=== PATIENT | female | born 1955 | race Caucasian/White ===

== ENCOUNTER 2022-09-17 11:00 | Outpatient (CLI) | payer MEDICARE, BC, SELFPAY ==
[2022-09-24 11:08] LABS: HPV APTIMA, High Risk Negative (Negative)
== END 2022-09-17 23:59 | disposition home or self-care (01) ==
LOC: LABSPEC 11:08
PROVIDERS: PCP Internal Medicine; Visit Provider Nurse Practitioner Women's Health
DX: Z12.4 Encounter for screening for malignant neoplasm of cervix (principal)
CPT/HCPCS: 87086; 87624; 88175; G0145

== ENCOUNTER → 2022-10-17 | Outpatient (CLI) | payer MEDICARE, BC, SELFPAY ==
--- NOTE | 2022-10-17 09:29 | BI_ITS ---
MAMMOGRAPHY - BILATERAL SCREENING REASON FOR EXAM: Female, 67 years old. Routine annual screening examination. PERTINENT HISTORY: Non-contributory. TECHNIQUE: Digital bilateral breast tad (3D mammographic acquisition) in the CC and MLO projections. 2-D mediolateral oblique (MLO) and craniocaudad (CC) views of both breasts were obtained. CAD: Full Field Digital Mammography with Computer Added Detection was performed. COMPARISON: No comparison mammograms available at this time. If any prior films become available, an addendum to this report can be generated. FINDINGS: Breast Composition: There are scattered areas of fibroglandular density. There are no dominant masses or suspicious calcifications. There is a 4.4 mm x 4 mm well-defined nodule in the central lateral aspect of the left breast. Correlation with ultrasound is recommended. This may represent a small lymph node. No other significant abnormalities are identified. BI/SCRN MAMM (CAD)W/TAD BILAT IMPRESSION: 4.4 mm x 4 mm nodule in the central lateral aspect of the right breast as described. Correlation with ultrasound is recommended. ASSESSMENT CATEGORY: BIRADS Category 0: Incomplete. Need additional imaging evaluation. A letter regarding these results will be sent to the patient by the facility within 30 days. Approximately 10% of breast cancers are not detected by mammography. A normal mammogram should not delay biopsy of a clinically suspicious abnormality. [id number] Electronically Signed: Az Gee MD at 11:59 EDT ,
--- NOTE | 2022-10-17 09:29 | BD_ITS ---
STUDY: DUAL ENERGY X-RAY ABSORPTIOMETRY / DXA REASON FOR EXAM: Female, 67 years old. V76.12ScreeningBONE DENSITY REASON FOR EXAM TECHNIQUE: Bone Mineral Density (BMD) measurements of lumbar spine and bilateral hips were obtained. COMPARISON: None. FINDINGS: Lumbar Spine (L1-L4): g/cm2 (0.738) / T-score (-2.5) / Z-score (-0.7) Findings are suggestive of osteoporosis with a high fracture risk. Left Femur Total: g/cm2 (0.827) / T-score (-0.9) / Z-score (0.4) Left Femoral Neck: g/cm2 (0.765) / T-score (-0.8) / Z-score (0.9) Right Femur Total: g/cm2 (0.851) / T-score (-0.7) / Z-score (0.6) Right Femoral Neck: g/cm2 (0.779) / T-score (-0.6) / Z-score (1.0) BD/Dexa Bone Density Study IMPRESSION: The patient is considered osteoporotic as outlined below according to World Roman Organization (WHO) criteria with a high fracture risk. Reference Information: The T-score is the number of standard deviations above or below the standard which is normal for young adults at their peak bone mineral density. The World Health Organization (WHO) interprets the T-scores as follows: Above -1 Normal bone density Between -1 and -2.5 Osteopenia Equal to / or below -2.5 Osteoporosis As a practical clinical guideline, osteopenia may be graded as follows: Mild -1 through -1.5 Moderate -1.6 through -2.0 Severe -2.1 through -2.4 The Z-score is the number of standard deviations above or below age-matched controls. A Z-score of less than -1.5 would be considered abnormal. References: 1. NIH Osteoporosis and Related Bone Diseases www osteo.org 2. International Society for Clinical Densitometry www iscd.org 3. National Osteoporosis Foundation www nof.org Electronically Signed: Az Gee MD at 12:52 EDT ,
== END | disposition home or self-care (01) ==
PROVIDERS: PCP Internal Medicine; Referring Provider Nurse Practitioner Women's Health; Visit Provider Nurse Practitioner Women's Health
DX: Z12.31 Encounter for screening mammogram for malignant neoplasm of breast (principal); M81.0 Age-related osteoporosis without current pathological fracture
CPT/HCPCS: 77063; 77067; 77080

== ENCOUNTER → 2022-10-18 | Outpatient (CLI) | payer MEDICARE, BC, SELFPAY ==
--- NOTE | 2022-10-18 12:25 | US_ITS ---
STUDY: ULTRASOUND BREAST - RIGHT REASON FOR EXAM: Female, 67 years old. Abnormal screening mammogram. TECHNIQUE: Axial and longitudinal images of the RIGHT breast were performed with a high resolution ultrasound transducer. # OF IMAGES: 25 COMPARISON: Comparison is made with prior study October 17, 2022. FINDINGS: RIGHT Breast: The mammographic abnormality corresponds to a 4 mm x 6 mm x 4 mm hypoechoic nodule at the 9:00 position of the breast at 9 cm from the nipple. Increased vascularity is seen. Biopsy recommended. US/Breast Limited Unilateral IMPRESSION: The mammographic abnormality corresponds to a 4 mm x 6 mm x 4 mm hypoechoic nodule at the 9:00 position of the breast at 9 cm from the nipple. Increased vascularity is seen. Biopsy recommended. ASSESSMENT CATEGORY: BIRADS Category 4: Suspicious - Biopsy Should Be Considered. A letter regarding these results will be sent to the patient by the facility within 30 days. Electronically Signed: Az Gee MD at 14:40 EDT ,
== END | disposition home or self-care (01) ==
LOC: OPUS 12:22
PROVIDERS: PCP Internal Medicine; Referring Provider Nurse Practitioner Women's Health; Visit Provider Nurse Practitioner Women's Health
DX: R92.8 Other abnormal and inconclusive findings on diagnostic imaging of breast (principal)
CPT/HCPCS: 76642

== ENCOUNTER → 2022-10-24 | Outpatient (CLI) | payer MEDICARE, BC, SELFPAY ==
--- NOTE | 2022-10-24 | BRBX_PTH ---
PATIENT: SONA SHAIKH [facility] U#:[id number] AGE/SX: 67/F ROOM: RE10/24/[address]: Dr. Liliane Cam MD : 1955 BED: DIS: 10/24/2022 SPEC #: [id number] RECD: 10/24/22 14:16 STATUS: ARIADNE RERolanda #: [id number] ENDY: 10/24/22 00:[address]: Liliane Cam DEPT: SURGICAL PATHOLOGY RECD BY: Roberto Cedeno ENTERED: 10/25/22 08:53 SP TYPE: BREAST BX OTHR DR: Dr. Corine Maki DO Tissues: Right breast, NOS Procedures: Surgery Specimen Level IV HEADER OPERATION: Biopsy of right breast nodule PRE-OP DIAGNOSIS: Right breast nodule TISSUE SUBMITTED: Right breast 9 o'clock, 9 cm from nipple MICROSCOPIC DIAGNOSIS Right breast, 9 o'clock, 9.0 cm from nipple, core biopsy: Fragments of benign breast tissue, negative for atypia or malignancy. Fragments of benign lymph node tissue. See comment. ALEKS:nevin 10/28/2022 COMMENT Immunohistochemistry ([id number]) supports the above diagnosis. The findings represent benign intramammary lymph node. Correlation with clinical, radiologic findings and appropriate follow up are necessary. MICROSCOPIC DESCRIPTION Slides are reviewed. GROSS DESCRIPTION Received in fixative is one container labeled with the patient's name and designated right breast. The specimen consists of multiple elongated fragments of lewis-yellow fibroadipose tissue that in aggregate measure 1.5 x 0.7 x 0.1 cm. The entire specimen is submitted in one cassette. / ALEKS:nevin 10/25/2022 TC:5 CPT: 00808
--- NOTE | 2022-10-24 | IMM_PTH ---
PATIENT: SONA SHAIKH LOC: [facility] U#:[id number] AGE/SX: 67/F ROOM: RE10/24/[address]: Dr. Liliane Cam MD : 1955 BED: DIS: 10/24/2022 SPEC #: [id number] RECD: 10/28/22 13:05 STATUS: SOUJudy REQ #: [id number] ENDY: 10/24/22 00:[address]: Liliane Cam DEPT: IMMUNOHISTOCHEMISTRY RECD BY: Karly Villalobos ENTERED: 10/28/22 13:09 SP TYPE: IMMUNO OTHR DR: Dr. Corine Maki DO Tissues: Right breast, NOS Procedures: BCL-2 (add) BCL-6 (add) CD10 (add) CD20 (add) CD23 (add) CD45 (add) CD5 (add) CD79A (add) CYCLIN (add) KI-67 (add) CD3 (initial) PHYSICIAN & [address] [address] SPECIMEN INFORMATION: Tissue Source: Right breast Clinical Info: Right breast nodule Specimen Number: [id number] CPT code: 80916, 50188 x10 METHODOLOGY: Deparaffinized sections of prefer/formalin-fixed tissue or PAP/DQ stained slides are incubated with monoclonal/polyclonal antibodies/oligonucleotide probes. Localization is made via biotin free immunoperoxidase method. Appropriate controls are performed and reacted as expected. Results on target cell population are indicated in the following table: RESULTS: ANTIBODY / CLONE RESULT CD3 (PS1) positive CD5 (SP10) positive CD10 (56C6) positive, germinal center CD20 (L26) positive CD23 (1B12) positive CD45 (RP2/18) positive CD79a (11E3) positive BCL-2 (bcl-2/100/D5) positive BCL-6 (NO105A/A8) positive, germinal center Cyclin D1/BCL-1 (SP4) positive Ki-67 (30-9) positive (reactive pattern) These tests were developed and their performance characteristics determined by [facility]. They may not have been cleared or approved by the U.S. Food and Drug Administration. The FDA has determined that such clearance or approval is not necessary. The above immunohistochemical/dualISH markers are ordered and reviewed by the Pathologist. INTERPRETATION: Right breast, 9 o'clock, 9.0 cm from nipple, core biopsy: Fragments of benign lymph node tissue with reactive changes. SJ:nevin 10/29/2022
== END | disposition home or self-care (01) ==
LOC: LABSPEC 14:44
PROVIDERS: PCP Internal Medicine; Referring Provider Surgery; Visit Provider Surgery
DX: N63.10 Unspecified lump in the right breast, unspecified quadrant (principal)
CPT/HCPCS: 88305; 88341; 88342

== ENCOUNTER → 2023-01-28 | Outpatient (CLI) | payer MEDICARE, BC, SELFPAY ==
[2023-01-28 12:11] LABS: Absolute Lymphocyte Count 1.37 X10^3/uL (0.83-4.51); Absolute Neutrophil Count 2.9 X10^3/uL (2.0-7.7); Basophil# 0.04 X10^3/uL; Basophil% 0.8 % (0-1); Eosinophil# 0.21 X10^3/uL; Eosinophils% 4.2 % (0-5); Hematocrit 40.7 % (37-47); Hemoglobin 13.4 g/dL (12.0-15.0); Lymphocyte # 1.37 X10^3/ul (0.83-4.51); Lymphocyte % 27.3 % (19-41); Mean Corp Hgb Conc 32.9 g/dL (32-36); Mean Corpuscular Hgb 30.7 pg (27.0-32.0); Mean Corpuscular Volume 93.1 fL (81-99); Mean Platelet Vol. 10.6 fl (6.2-12.0); Monocyte# 0.46 X10^3/uL; Monocyte% 9.2 % (0-10); NRBC Flagged by Analyzer 0 % (0-5); Neutrophil # 2.92 X10^3/uL (2.7-7.7); Neutrophil % 58.3 % (47-70); Platelet Count 207 K/mm3 (150-450); RBC Distribution Width CV 12.5 % (11.6-14.6); RBC Distribution Width SD 42.8 fl (35.1-43.9); Red Blood Count 4.37 M/mm3 (4.2-5.4)
[2023-01-28 12:38] LABS: Vitamin D,25 Hydroxy 39.6 ng/mL
[2023-01-28 12:40] LABS: Cholesterol 196 mg/dL (200); High Density Lipoprotein 70 mg/dL; T4 Free Direct 0.96 ng/dL (0.76-1.46); Thyroid Stim Hormone (TSH) 1.06 uIU/mL (0.358-3.74); Triglycerides 111 mg/dL; Very Low Density Lipoprotein 22 mg/dL (5-40)
[2023-01-28 12:48] LABS: Microalbumin,Random Urine < 5.0 mg/L (NO RANGE EST.)
== END | disposition home or self-care (01) ==
LOC: BFHLAB 09:41
PROVIDERS: PCP Nurse Practitioner Family; Referring Provider Nurse Practitioner Family; Visit Provider Nurse Practitioner Family
DX: E78.5 Hyperlipidemia, unspecified (principal); I10 Essential (primary) hypertension; E03.9 Hypothyroidism, unspecified
CPT/HCPCS: 36415; 80061; 82043; 82306; 82570; 84439; 84443; 85025

== ENCOUNTER → 2023-05-01 | Outpatient (CLI) | payer MEDICARE, BC, SELFPAY ==
--- NOTE | 2023-05-01 09:31 | US_ITS ---
STUDY: ULTRASOUND BREAST - RIGHT REASON FOR EXAM: Female, 67 years old. Six-month follow-up following needle biopsy. TECHNIQUE: Axial and longitudinal images of the RIGHT breast were performed with a high resolution ultrasound transducer. # OF IMAGES: 13 COMPARISON: Comparison is made with prior study dated October 18, 2022. FINDINGS: RIGHT Breast: Stable appearance of the 5 mm x 4 mm x 3 mm hypoechoic nodule at the 9:00 position of the breast and 9 cm from nipple. A tissue clip is not visualized. US/Breast Limited Unilateral IMPRESSION: Status post biopsy of the 5 mm x 4 mm x 3 mm hypoechoic nodule at the 9:00 position of the breast at 9 cm from nipple. ASSESSMENT CATEGORY: BIRADS Category 2: Benign. A letter regarding these results will be sent to the patient by the facility within 30 days. Electronically Signed: Az Gee MD at 11:14 EDT ,
== END | disposition home or self-care (01) ==
LOC: OPUS 09:31
PROVIDERS: PCP Internal Medicine; Referring Provider Surgery; Visit Provider Surgery
DX: N63.10 Unspecified lump in the right breast, unspecified quadrant (principal); R92.0 Mammographic microcalcification found on diagnostic imaging of breast
CPT/HCPCS: 76642

== ENCOUNTER → 2023-10-23 | Outpatient (CLI) | payer MEDICARE, BC, SELFPAY ==
--- NOTE | 2023-10-23 09:58 | BI_ITS ---
MAMMOGRAPHY - BILATERAL SCREENING REASON FOR EXAM: Female, 68 years old. Routine annual screening examination. PERTINENT HISTORY: Non-contributory. Prior right ultrasound-guided breast biopsy. TECHNIQUE: Digital bilateral breast tad (3D mammographic acquisition) in the CC and MLO projections. 2-D mediolateral oblique (MLO) and craniocaudad (CC) views of both breasts were obtained. CAD: Full Field Digital Mammography with Computer Added Detection was performed. COMPARISON: Comparison is made with prior study October 17, 2022. FINDINGS: Breast Composition: There are scattered areas of fibroglandular density. There are no dominant masses or suspicious calcifications. A tissue clip marker seen within a tiny nodule in the central lateral aspect of the right breast. The nodule is decreased in size. Stable benign-appearing bilateral axillary lymph nodes. No other significant abnormalities are identified. There has been no significant change since the prior study. BI/SCRN MAMM (CAD)W/TAD BILAT IMPRESSION: Stable bilateral screening mammogram. Yearly follow-up mammogram recommended. (A) ASSESSMENT CATEGORY: BIRADS Category 2: Benign. A letter regarding these results will be sent to the patient by the facility within 30 days. Approximately 10% of breast cancers are not detected by mammography. A normal mammogram should not delay biopsy of a clinically suspicious abnormality. [id number] Electronically Signed: zA Gee MD at 11:07 EDT ,
== END | disposition home or self-care (01) ==
LOC: OPBI 09:56
PROVIDERS: PCP Nurse Practitioner Family; Referring Provider Nurse Practitioner Family; Visit Provider Nurse Practitioner Family
DX: Z12.31 Encounter for screening mammogram for malignant neoplasm of breast (principal)
CPT/HCPCS: 77063; 77067

== ENCOUNTER → 2024-01-06 | Outpatient (CLI) | payer MEDICARE, BC, SELFPAY | END | disposition home or self-care (01) | LOC: BFHLAB 13:11 → LABSPEC 13:13 | PROVIDERS: PCP Family Medicine; Referring Provider Family Medicine; Visit Provider Family Medicine | DX: B34.9 Viral infection, unspecified (principal) | CPT/HCPCS: 87070; 87205 ==

== ENCOUNTER → 2024-11-23 | Outpatient (CLI) | payer MEDICARE, BC, SELFPAY ==
[2024-11-23 11:02] LABS: Hematocrit 38.2 % (37-47); Hemoglobin 14.0 g/dL (12.0-15.0); Immature Granulocytes Count 0.010 X10^3/uL (0.0-0.0); Mean Corp Hgb Conc 36.6 g/dL (32-36); Mean Corpuscular Volume 88.0 fL (81-99); Mean Platelet Vol. 9.5 fl (6.2-12.0); NRBC Flagged by Analyzer 0 % (0-5); Platelet Count 199 K/mm3 (150-450); RBC Distribution Width CV 12.0 % (11.6-14.6); RBC Distribution Width SD 38.5 fl (35.1-43.9); Red Blood Count 4.34 M/mm3 (4.2-5.4); White Blood Count 4.9 K/mm3 (4.4-11.0)
[2024-11-23 11:49] LABS: Creatinine, Urine (random) 221.00 mg/dL (28.00-217.00); Microalbumin,Random Urine < 12.0 mg/L (<20 mg/L)
[2024-11-23 11:52] LABS: AST(SGOT) 26 U/L (<=31); Alanine Aminotransfer ALT/SGPT 24 U/L (<=34); Albumin, Serum 4.4 g/dL (3.4-4.8); Alkaline Phosphatase 82 U/L (35-104); Anion Gap 10 (5-15); BUN 24 mg/dL (4-19); BUN/Creat Ratio 21.4 RATIO (10-20); Calcium,Total 9.7 mg/dL (7.6-11.0); Carbon Dioxide 26.3 mmol/L (21.0-32.0); Chloride 100 mmol/L (98-108); Cholesterol 208 mg/dL (<=200); Globulin 3.0 g/dL (2.2-4.2); Glucose 108 mg/dL (70-99); Low Density Lipoprotein Calc. 110 mg/dL; Potassium 4.5 mmol/L (3.3-5.1); Triglycerides 175 mg/dL; Very Low Density Lipoprotein 35 mg/dL (5-40); Vitamin D,25 Hydroxy 69.6 ng/mL (30-100); cholesterol:hdl ratio screen 3.28
--- NOTE | 2024-11-23 16:13 | BI_ITS ---
EXAM: SCRN MAMM (CAD)W/TAD BILAT DATE: 11/23/2024 CLINICAL HISTORY: F, Age 69 y/o , SCREENING No family history. Prior right ultrasound-guided breast biopsy. TECHNIQUE: Procedure Code: [id number] Modality: MG Procedure: SCRN MAMM (CAD)W/TAD BILAT COMPARISON: Prior exam(s) dated October 23, 2023.. FINDINGS: TISSUE DENSITY: There are scattered areas of fibroglandular density. Bilateral Breast Mammographic Findings: No significant masses, calcifications or other abnormalities are identified. A tissue clip marker is once again seen within a tiny nodule in the deep central lateral aspect of the right breast. No suspicious masses, areas of developing architectural distortion, or suspicious calcifications. There has been no significant interval change. BI/SCRN MAMM (CAD)W/TAD BILAT IMPRESSION: Stable bilateral screening mammogram. OVERALL FINAL ASSESSMENT BI-RADS 2: BENIGN RECOMMENDATION: Routine annual follow-up in 1 Year Additional Recommendation none A letter with findings and recommendations will be mailed to the patient. Reading Location: [place] [address]
--- NOTE | 2024-11-23 16:16 | BD_ITS ---
PROCEDURE: DEXA BONE DENSITY STUDY 11/23/2024 REASON FOR EXAM: F, age 69 y/o . Postmenopausal. TECHNIQUE: Procedure Code: BDDBD Modality: DX Procedure: DEXA BONE DENSITY STUDY COMPARISON: Prior study dated October 17, 2022. FINDINGS: BMD and T-SCORES Lumbar spine: 0.754 g/cm2, T-score -2.4 Levels: L1 through L4 Change from prior: Improvement of 2.3%. Left femoral neck: 0.691 g/cm2, T-score -1.4 Femoral neck comparison data not recommended for monitoring change. Left total hip: 0.789 g/cm2, T-score -1.3 Change from prior: Loss of 4.6%. Right femoral neck: 0.708 g/cm2, T-score -1.3 Femoral neck comparison data not recommended for monitoring change. Right total hip: 0.802 g/cm2, T-score -1.1 Change from prior: Loss of 5.8%. The World Health Organization has defined the following categories based on bone density: Normal bone density: T-score equal to or greater than -1.0 Osteopenia: T-score between -1.0 and -2.5 Osteoporosis: T-score equal to or less than -2.5 FRAX (or Comparable) Fracture Risk Assessment: 10 Year Probability of Fracture: Major Osteoporotic Fracture: 35% Hip Fracture: 5.9% (Note: FRAX is not to be reported in setting of normal range bone density, osteoporosis on DEXA, known history of osteoporosis, prior osteoporotic hip or vertebral fracture, or for any patient undergoing pharmacological treatment for bone loss.) The National Osteoporosis Foundation (NOF) recommends pharmacological treatment for patients with a FRAX 10-year risk of 3% or higher for a hip fracture, or 20% or higher for a major osteoporotic fracture, to prevent osteoporosis and reduce fracture risk. The patient does meet the pharmacological treatment recommendations for prevention of osteoporosis. BD/Dexa Bone Density Study IMPRESSION: OSTEOPENIA. Recommend follow-up as clinically warranted. Reading Location: [place] [address]
== END | disposition home or self-care (01) ==
LOC: OPBI 16:11
PROVIDERS: PCP Nurse Practitioner Family; Referring Provider Nurse Practitioner Family; Visit Provider Nurse Practitioner Family
DX: Z12.31 Encounter for screening mammogram for malignant neoplasm of breast (principal); Z78.0 Asymptomatic menopausal state; M81.0 Age-related osteoporosis without current pathological fracture; R73.01 Impaired fasting glucose; E55.9 Vitamin D deficiency, unspecified; E78.5 Hyperlipidemia, unspecified; I10 Essential (primary) hypertension; E03.9 Hypothyroidism, unspecified
CPT/HCPCS: 36415; 77063; 77067; 77080; 80053; 80061; 82043; 82306; 82570; 83036; 84439; 84443; 85025